=== PATIENT | male | born 1965 | race African-American/Black ===

== ENCOUNTER 2017-05-26 16:45 | Emergency (ER) | payer MEDICAID, MEDICARE, OTHER ==
[~2017-05-26] VITALS: Ht 175.3 cm; Wt 59.0 kg
[2017-05-26 18:01] LABS: BASOPHILS % (AUTO) 0.8 % (0.0-2.0); EOSINOPHILS % (AUTO) 0.2 % (0.0-3.0); LYMPHOCYTES % (AUTO) 18.1 % (20.0-45.0); MEAN CORPUSCULAR HEMOGLOBIN 36.5 PG (27.0-31.0); MEAN CORPUSCULAR HGB CONC 35.8 G/DL (32.0-36.0); MEAN CORPUSCULAR VOLUME 102 FL (80-99); MEAN PLATELET VOLUME 6.9 FL (6.5-10.1); MONOCYTES % (AUTO) 7.4 % (1.0-10.0); NEUTROPHILS % (AUTO) 73.4 % (45.0-75.0); PLATELET COUNT 202 K/UL (150-450); RED BLOOD COUNT 4.56 M/UL (4.70-6.10); RED CELL DISTRIBUTION WIDTH 13.6 % (11.6-14.8); WHITE BLOOD COUNT 10.4 K/UL (4.8-10.8)
[2017-05-26 18:08] LABS: ALANINE AMINOTRANSFERASE 40 U/L (3-41); ALBUMIN/GLOBULIN RATIO 1.5 (1.0-2.7); ANION GAP 15 (5-15); ASPARTATE AMINO TRANSFERASE 50 U/L (5-40); CALCIUM 10.1 mg/dL (8.6-10.2); CARBON DIOXIDE 26 mEQ/L (20-30); CHLORIDE 95 mEQ/L (98-107); CREATININE 1.4 mg/dL (0.7-1.2); GLOMERULAR FILTRATION RATE > 60 mL/min (>60); HEMOLYSIS 12; POTASSIUM 3.8 mEQ/L (3.4-4.9); SODIUM 136 mEQ/L (135-145); TOTAL PROTEIN 7.8 g/dL (6.6-8.7)
[2017-05-26 18:26] VITALS: BP 144/85
[2017-05-26] MEDS ORDERED: SOMA350 MG PO (18:55)
[2017-05-26 19:24] VITALS: BP 144/85
--- NOTE | 2017-05-26 20:45 | Emergency Room Report ---
History of Present Illness General Chief Complaint: General Complaint Present Illness HPI The patient is a 52 yo M with history of HIV and bilateral total hip replacement presenting for hip and leg pain. He states surgery was 6 years prior at [facility]. He is now complaining of a 10/10 dull ache which radiates from the hips to the lower legs. Pain has been worsening gradually over the past week after he ran out of soma and [email or web address]. He is complaining of uncontrollable spasms of the legs. He has not been able to follow up with his PMD or surgeon. He denies symptoms including N, V, F, chills, numbness/tingling, SOB Allergies: Coded Allergies: No Known Allergies (Unverified , 05/26/17) Patient History Past Medical History: see triage record Pertinent Family History: none Reviewed Nursing Documentation: PMH: Agreed, PSxH: Agreed Nursing Documentation-PMH Hx Cardiac Problems: No Hx Pacemaker: No Hx Asthma: No Hx Diabetes: No Hx Cancer: No Hx Gastrointestinal Problems: Yes - hiv Hx Cerebrovascular Accident: No Hx Seizures: No Review of Systems All Other Systems: negative except mentioned in HPI Physical Exam Vital Signs Date Time Temp Pulse Resp B/P Pulse Ox O2 Delivery O2 Flow Rate FiO2 05/26/17 16:41 98.1 78 16 150/98 98 Room Air Sp02 EP Interpretation: reviewed, normal General Appearance: no apparent distress, alert, GCS 15, non-toxic Head: normocephalic, atraumatic Eyes: bilateral eye PERRL, bilateral eye normal inspection ENT: hearing grossly normal, normal pharynx, no angioedema, normal voice Musculoskeletal: digits/nails normal, normal range of motion, tender - diffuse TTP to lower back, hips, and thighs Neurologic: alert, oriented x3, responsive, motor strength/tone normal, sensory intact, abnormal gait - slow Psychiatric: judgement/insight normal, memory normal, mood/affect normal, no suicidal/homicidal ideation Reflexes: 2+ knee (R), 2+ knee (L), 2+ ankle (R), 2+ ankle (L) Skin: normal color, no rash, warm/dry, well hydrated Lymphatic: no adenopathy Medical Decision Making PA Attestation Dr. Bashir is my supervising physician. Patient management was discussed with my supervising physician Diagnostic Impression: Primary Impression: Muscle spasm Additional Impression: Dehydration ER Course The patient is a 52 yo M presenting for exacerbation of chronic pain DDx considered: chronic pain, pain medication seeking behavior, fracture, sprain , hardware infection, among others PE: afebrile. NAD Skin is warm and dry. No erythema. Diffuse TTP of lower back, hips, and thighs. Normal but slow gait SILT. Full AROM There is repetitive flexion and extension of R ankle throughout entire visit. The patient is given IV fluids and a soma and is feeling significantly better. CURES report shows no recent prescription of soma. He will be Tn'ed home and is told that he needs to FU with PMD and surgeon. Laboratory Tests Test 05/26/17 17:24 White Blood Count 10.4 K/UL (4.8-10.8) Red Blood Count 4.56 M/UL (4.70-6.10) L Hemoglobin 16.7 G/DL (14.2-18.0) Hematocrit 46.6 % (42.0-52.0) Mean Corpuscular Volume 102 FL (80-99) H Mean Corpuscular Hemoglobin 36.5 PG (27.0-31.0) H Mean Corpuscular Hemoglobin Concent 35.8 G/DL (32.0-36.0) Red Cell Distribution Width 13.6 % (11.6-14.8) Platelet Count 202 K/UL (150-450) Mean Platelet Volume 6.9 FL (6.5-10.1) Neutrophils (%) (Auto) 73.4 % (45.0-75.0) Lymphocytes (%) (Auto) 18.1 % (20.0-45.0) L Monocytes (%) (Auto) 7.4 % (1.0-10.0) Eosinophils (%) (Auto) 0.2 % (0.0-3.0) Basophils (%) (Auto) 0.8 % (0.0-2.0) Sodium Level 136 mEQ/L (135-145) Potassium Level 3.8 mEQ/L (3.4-4.9) Chloride Level 95 mEQ/L (98-107) L Carbon Dioxide Level 26 mEQ/L (20-30) Anion Gap 15 (5-15) Blood Urea Nitrogen 24 mg/dL (7-23) H Creatinine 1.4 mg/dL (0.7-1.2) H Estimate Glomerular Filtration Rate > 60 mL/min (>60) Glucose Level 94 mg/dL (74-106) Calcium Level 10.1 mg/dL (8.6-10.2) Total Bilirubin 0.7 mg/dL (0.0-1.2) Aspartate Amino Transferase (AST) 50 U/L (5-40) H Alanine Aminotransferase (ALT) 40 U/L (3-41) Alkaline Phosphatase 65 U/L (40-129) Total Creatine Kinase 799 U/L (38-174) H Total Protein 7.8 g/dL (6.6-8.7) Albumin 4.7 g/dL (3.5-5.2) Globulin 3.1 g/dL Albumin/Globulin Ratio 1.5 (1.0-2.7) Serum Alcohol < 10 mg/dL Lab Results Impression CBC shows no white count. CMP has BUN/Cr and CK elevation. Last Vital Signs Date Time Temp Pulse Resp B/P Pulse Ox O2 Delivery O2 Flow Rate FiO2 05/26/17 19:24 98.3 99 16 144/85 97 Room Air Status: improved Disposition: HOME, SELF-CARE Condition: Improved Scripts Carisoprodol* (SOMA*) 350 Mg Tablet 350 MG PO Q8HR, #10 TAB Prov: CAMMY ANDREWS 05/26/17 Patient Instructions: Muscle Pain, Adult, Heat Therapy Additional Instructions: I discussed my findings with the patient. All questions and concerns have been answered. Treatment and medication compliance have been addressed. I advised the patient that they need to follow up with PMD in 3-5 days. Return to ED if symptoms worsen, new symptoms arise, or if needed for any reason. Patient verbalized understanding of discharge instructions. Please followup with your primary doctor and surgeon as was discussed. CAMMY ANDREWS May 26, 2017 20:45
== END 2017-05-26 19:24 | disposition home or self-care (01) ==
LOC: EDBD 16:45 → EMR 17:29
DX: M62.838 Other muscle spasm (principal); E86.0 Dehydration; M25.551 Pain in right hip; Z96.643 Presence of artificial hip joint, bilateral
CPT/HCPCS: 36415; 80053; 82550; 85025; 96361; 96374; 99284; G0480; 80329